=== PATIENT | male | born 1975 | race Caucasian/White ===

== ENCOUNTER 2016-07-10 16:38 | Outpatient (CLI) | payer BC ==
--- NOTE | 2016-07-10 17:33 | DIAGNOSTIC IMAGING REPORT ---
PROCEDURE: US SOFT TISSUE THYR/NECK/HEAD INDICATION: Hypothyroidism. Possible goiter. Thyroxine replacement therapy. TECHNIQUE: Mai scale and color Doppler sonographic images of the thyroid gland were obtained. COMPARISON: None. FINDINGS: RIGHT LOBE: Right lobe of the thyroid gland is mildly prominent (5.3 x 2.0 x 2.7 cm) with a heterogeneous appearance. There is a 2.6 x 2.3 x 2.0 cm well-circumscribed ovoid isoechoic nodule in the mid pole of the right lobe compatible with a benign adenoma. LEFT LOBE: Left lobe of the thyroid gland is of normal size (5.2 x 1.8 x 1.9 cm) with a generalized heterogeneous appearance. ISTHMUS: The isthmus is mildly heterogeneous (6 mm). IMPRESSION: 1. Mildly heterogeneous normal size thyroid gland consistent with multinodular goiter or prior thyroiditis. 2. There is a 2.6 x 2.3 x 2.0 cm isoechoic nodule in the right lobe of thyroid gland which has the appearance of a benign adenoma. 3. While there is no evidence of underlying abnormality, early follow-up thyroid ultrasound in 6 months is recommended to confirm stability.
== END 2016-07-10 23:00 ==
LOC: US SRH 16:38
DX: E03.0 Congenital hypothyroidism with diffuse goiter (principal); R93.8 Abnormal findings on diagnostic imaging of other specified body structures